=== PATIENT | female | born 1940 | race Caucasian/White ===

== ENCOUNTER 2023-09-27 06:37 | Observation (INO) ==
[2023-09-27] MEDS: SODIUM CHLORIDE 0.9% 500 ML IV SCH (07:07)
[2023-09-27] MEDS: SODIUM CHLORIDE 0.9% 500 ML IV ONE (07:18)
[2023-09-27 07:24] LABS: Basophils # (auto) 0.09 K/uL (0.00-0.20); Eosinophils # (auto) 0.48 K/uL (0.00-0.50); Eosinophils % (auto) 5.1 %; Hematocrit (blood only) 35.8 % (37.0-47.0); Hemoglobin 11.8 g/dl (12.0-16.0); Immature Granulocytes # (auto) 0.03 K/uL (0.01-0.20); Immature Granulocytes % (auto) 0.3 %; Lymphocytes % (auto) 20.1 %; Mean Corpuscular Hemoglobin 30.3 pg (25.0-34.0); Mean Corpuscular Volume 91.8 fL (80.0-100.0); Mean Platelet Volume 12.7 fL (9.4-12.4); Monocytes # (auto) 0.86 K/uL (0.11-0.59); Monocytes % (auto) 9.1 %; Neutrophils # (auto) 6.09 K/uL (1.40-6.50); Neutrophils % (auto) 64.4 %; Platelet Count 201 K/uL (130-400); RDW Coefficient of Variation 12.5 % (11.5-14.5); RDW Standard Deviation 41.5 fL (36.4-46.3); White Blood Count 9.45 K/ul (4.8-10.8)
[2023-09-27 07:39] LABS: Appearance Urine Clear (Clear); Bilirubin Urine Negative (Negative); Blood Urine Negative (Negative); Color Urine Yellow; Glucose Urine UA Negative (Negative); Ketones Urine Negative (Negative); Leukocyte Esterase Urine Negative (Negative); Nitrite Urine Negative (Negative); Protein Urine Negative (Negative); Specific Gravity Urine 1.025 (1.000-1.030); Urobilinogen Urine Negative (Negative); pH Urine 5.5 (4.5-7.5)
[2023-09-27 08:02] LABS: Partial Thromboplastin Time 26 Seconds (21-31); Prothrombin Time 10.8 Seconds (9.0-12.0)
--- NOTE | 2023-09-27 08:09 | Emergency Department Note ---
History of Present Illness General Chief complaint: Diarrhea Stated complaint: Diarrhea Time Seen by Provider: 09/27/23 06:51 Source: patient and family (Son at bedside) History of Present Illness Provider Complaint: + diarrhea Onset (ago): month(s) (2) Description of Diarrhea: no mucousy, no tarry, no blood-streaked or no bloody (bright red) Associated Abdominal Pain: No Context: no foreign travel, no recent antibiotic use or no trauma Associated symptoms: no fever/chills, no nausea/vomiting or no decreased urine output HPI Narrative: Patient has a history of dementia. History is provided by the son. Son states that he wants the patient placed into a skilled nursing. Home Medications Medication Instructions Recorded Confirmed Type celecoxib 100 mg capsule 100 mg PO DAILY 04/21/22 09/27/23 History losartan 100 mg tablet 100 mg PO DAILY 04/21/22 09/27/23 History omeprazole 20 mg capsule,delayed 20 mg PO DAILY 04/21/22 09/27/23 History release rivastigmine 9.5 mg/24 hour 1 patch transdermal DAILY 04/21/22 09/27/23 History transdermal patch biotin 1,000 mcg chewable tablet 1,000 mcg PO DAILY 09/27/23 09/27/23 History cholecalciferol (vitamin D3) 50 50 mcg PO DAILY 09/27/23 09/27/23 History mcg (2,000 unit) tablet (Vitamin D3) naproxen sodium 220 mg tablet 220 mg PO BID PRN Pain 09/27/23 09/27/23 History (Aleve) Allergies Allergy/AdvReac Type Severity Reaction Status Date / Time No Known Allergies Allergy Unverified 09/27/23 09:15 Past Med/Surg History Problem List (Updated 09/27/23 @ 14:31 by Pierre Driscoll MD) Dementia Essential hypertension Adult failure to thrive (Acute) Weight loss Diarrhea (Acute) Medical History No pertinent family history HTN (hypertension) Dementia Surgical History No pertinent past surgical history Social History Smoking Status: Unknown if ever smoked Preferred Language: Liberian Feels Safe at Home: Yes Physical Exam 2 Vital Signs: Vital Signs - 24 hr 09/27/23 07:04 09/27/23 07:04 09/27/23 08:29 Temperature 36.6 C Temperature Source Oral Pulse Rate 107 H 78 Pulse Rate [Apical ] Respiratory Rate 18 Respiratory Effort / Characteristics Respiratory Depth Blood Pressure 96/60 L Blood Pressure [Le ft Arm] Blood Pressure Rachell n 72 Blood Pressure Rachell n [Left Arm] Pulse Oximetry 96 96 Oxygen Delivery Me thod Room Air Room Air Sepsis Recent Feve r Within 48 Hours No Sepsis New/Unexpla ined Change in Men irma Status No Sepsis Action Take n by Nursing Physician Notified 09/27/23 08:47 09/27/23 11:23 09/27/23 12:35 Temperature Temperature Source Pulse Rate 76 Pulse Rate [Apical ] 84 77 Respiratory Rate 20 15 Respiratory Effort / Characteristics Non-Labored Sponta neous Respiratory Depth Normal Blood Pressure Blood Pressure [Le ft Arm] 123/69 111/70 Blood Pressure Rachell n Blood Pressure Rachell n [Left Arm] 87 83 Pulse Oximetry 97 97 Oxygen Delivery Me thod Room Air Room Air Sepsis Recent Feve r Within 48 Hours Sepsis New/Unexpla ined Change in Men irma Status Sepsis Action Take n by Nursing Physical Exam: Physical Exam HENT: Exam performed. - Head: Normocephalic and atraumatic. EYES: Conjunctivae and EOM are normal. Right eye exhibits no discharge. Left eye exhibits no discharge. No scleral icterus. NECK: Normal range of motion. Neck supple. No JVD present. CV: Normal rate, regular rhythm, normal heart sounds and intact distal pulses. There is no peripheral edema. Palpable radial pulses bue. PULM/CHEST: Effort normal and breath sounds normal. No respiratory distress. No stridor. no wheezes. no rales. ABD: The abdomen is soft. There is no tenderness. NEURO: Motor and sensation grossly intact. Course Course 06: The patient was evaluated in room C8. A complete history and physical exam was performed Cardiac monitoring: An order was placed for continuous cardiac monitoring. The monitor shows a rate of 100 with sinus rhythm interpreted by me 0900: Vital signs stable. Labs within normal limits. Son has been requesting repeatedly for the patient to be admitted to a skilled nursing. Discussed with case management who stated that the patient needs to be admitted to the hospital service and then be placed from the floor to a skilled nursing. [facility]. Administered Medications Sodium Chloride (Nss) 500 mls @ 125 mls/hr IV .Q4H SHANAE Stop: 10/27/23 06:59 Last Admin: 09/27/23 14:22 Dose: 125 mls/hr Documented By: Infusion: 09/27/23 13:26 Dose: Infused Documented By: Admin: 09/27/23 07:07 Dose: 125 mls/hr Documented By: HS Discontinued Medications Sodium Chloride (Nss) 500 mls @ 999 mls/hr IV .Q31M ONE Stop: 09/27/23 07:39 Last Infusion: 09/27/23 11:25 Dose: Infused Documented By: Admin: 09/27/23 07:18 Dose: 999 mls/hr Documented By: WILLIAM Medical Decision Making Laboratory Data Attestation: I reviewed the patient's lab results. 09/27/23 07:08 09/27/23 07:08 Lab Results 09/27/23 09/27/23 Range/Units 07:08 07:25 WBC 9.45 (4.8-10.8) K/ul RBC 3.90 L (4.20-5.40) M/uL Hgb 11.8 L (12.0-16.0) g/dl Hct 35.8 L (37.0-47.0) % MCV 91.8 (80.0-100.0) fL MCH 30.3 (25.0-34.0) pg MCHC 33.0 (32.0-36.0) g/dL RDW Std Deviation 41.5 (36.4-46.3) fL RDW Coeff of [place] 12.5 (11.5-14.5) % Plt Count 201 (130-400) K/uL MPV 12.7 H (9.4-12.4) fL Immature Gran % (Auto) 0.3 % Neut % (Auto) 64.4 % Lymph % (Auto) 20.1 % [place] % (Auto) 9.1 % Eos % (Auto) 5.1 % Baso % (Auto) 1.0 % Neut # (Auto) 6.09 (1.40-6.50) K/uL Lymph # (Auto) 1.90 (1.20-3.40) K/uL Sherman # (Auto) 0.86 H (0.11-0.59) K/uL Eos # (Auto) 0.48 (0.00-0.50) K/uL Baso # (Auto) 0.09 (0.00-0.20) K/uL Immature Gran # (Auto) 0.03 (0.01-0.20) K/uL PT 10.8 (9.0-12.0) Seconds INR 1.0 (0.9-1.1) APTT 26 (21-31) Seconds PTT Ratio 1.0 Sodium 135 L (136-145) mmol/L Potassium 4.9 (3.5-5.1) mmol/L Chloride 103 (98-107) mmol/L Carbon Dioxide 24 (21-32) mmol/L Anion Gap 8 (3-11) BUN 30 H (6-23) mg/dl Creatinine 1.37 H (0.6-1.2) mg/dl Est Cr Clr Drug Dosing 28.8 ml/min Est GFR ( Amer) 41.5 ml/min Est GFR (Non-Af Amer) 35.8 ml/min BUN/Creatinine Ratio 21.9 H (10-20) Glucose 93 (70-99(Fasting)) mg/dl Calcium 9.5 (8.6-10.3) mg/dl Magnesium 1.9 (1.7-2.4) mg/dl Total Bilirubin 0.3 (0.2-1.0) mg/dl Direct Bilirubin 0.1 (0-0.2) mg/dl AST 14 (13-39) U/L ALT 10 (7-52) U/L Alkaline Phosphatase 64 (34-104) U/L Total Protein 7.3 (6.0-8.3) gm/dl Albumin 4.3 (3.4-5.0) gm/dl Lipase 57 (11-82) U/L Urine Color Yellow Urine Appearance Clear (Clear) Urine pH 5.5 (4.5-7.5) Ur Specific [place] 1.025 (1.000-1.030) Urine Protein Negative (Negative) Urine Glucose (UA) Negative (Negative) Urine Ketones Negative (Negative) Urine Blood Negative (Negative) Urine Nitrite Negative (Negative) Urine Bilirubin Negative (Negative) Urine Urobilinogen Negative (Negative) Ur Leukocyte Esterase Negative (Negative) [facility] Narrative 0651: The patient was evaluated in room C8. A complete history and physical exam was performed Cardiac monitoring: An order was placed for continuous cardiac monitoring. The monitor shows a rate of 100 with sinus rhythm interpreted by me 0900: Vital signs stable. Labs within normal limits. Son has been requesting repeatedly for the patient to be admitted to a skilled nursing. Discussed with case management who stated that the patient needs to be admitted to the hospital service and then be placed from the floor to a skilled nursing. Patient be admitted to the [facility] hospitalist team. Impression & Plan Adult failure to thrive, Diarrhea Discharge Plan Visit Data Chief Complaint: Diarrhea Stated Complaint: Diarrhea ED Provider: Pierre Driscoll Discharge Problem: Adult failure to thrive, Diarrhea Patient Disposition: Being Evaluated by Hospitalist Forms Stand Alone Forms: [facility] Prescriptions Prescriptions: No Action omeprazole 20 mg capsule,delayed release(DR/EC) 20 mg PO DAILY losartan 100 mg tablet 100 mg PO DAILY rivastigmine 9.5 mg/24 hour patch 24 hour 1 patch transdermal DAILY Rx Instructions: ALTERNATE PATCH SITES DAILY celecoxib 100 mg capsule 100 mg PO DAILY naproxen sodium [Aleve] 220 mg Tablet 220 mg PO BID PRN (Reason: Pain) cholecalciferol (vitamin D3) [Vitamin D3] 50 mcg (2,000 unit) Tablet 50 mcg PO DAILY biotin 1,000 mcg Tablet,Chewable 1,000 mcg PO DAILY Referrals Referrals: Yin Schaefer DO [Primary Care Provider] -
[2023-09-27 08:21] LABS: Albumin Level 4.3 gm/dl (3.4-5.0); BUN Creatinine Ratio 21.9 (10-20); Bilirubin,Total 0.3 mg/dl (0.2-1.0); Calcium 9.5 mg/dl (8.6-10.3); Creatinine Clr Calc Pharmacy 28.8 ml/min; Est GFR (African American) 41.5 ml/min; Est GFR (Non-African American) 35.8 ml/min; Magnesium 1.9 mg/dl (1.7-2.4); Total Protein 7.3 gm/dl (6.0-8.3)
[2023-09-27 08:40] LABS: Bilirubin Direct 0.1 mg/dl (0-0.2); Potassium 4.9 mmol/L (3.5-5.1)
--- NOTE | 2023-09-27 11:49 | History & Physical Report ---
Date of Service September 27, 2023 Assessment & Plan (1) Diarrhea: Plan: Protracted watery diarrhea for the past 2 months. She denies any melena or hematochezia. No associated nausea or vomiting. She refuses any testing to evaluate her symptoms except for stool BioFire. For this reason, GI consultation has not been requested (2) Weight loss: Plan: Findings are highly suspicious for occult malignancy. However she has refused any further testing (3) Adult failure to thrive: Plan: OT and PT assessments requested. Her son has requested long-term placement (4) Essential hypertension: Plan: Continue losartan therapy (5) Dementia: Plan: Supportive care. She currently uses rivastigmine patches daily Plan Eventual long-term care placement History of Present Illness Chief Complaint: protracted watery diarrhea, weight loss, FTT Primary Care Provider: Yin Schaefer DO 82-year-old white female with protracted watery diarrhea for the past 2 months accompanied by weight loss and failure to thrive. She denies any associated nausea or vomiting. She denies melena or hematochezia. She denies any recent colonoscopy. She also refuses to undergo any workup for her current symptoms which entail invasive procedures like colonoscopy. For this reason, gastroenterology will not be consulted. Stool BioFire is pending. IV fluids ordered. OT and PT assessments requested. The patient's son is requesting long-term placement. Allergies Allergy/AdvReac Type Severity Reaction Status Date / Time No Known Allergies Allergy Unverified 09/27/23 09:15 Home Medications Medication Instructions Recorded Confirmed Type celecoxib 100 mg capsule 100 mg PO DAILY 04/21/22 09/27/23 History losartan 100 mg tablet 100 mg PO DAILY 04/21/22 09/27/23 History omeprazole 20 mg capsule,delayed 20 mg PO DAILY 04/21/22 09/27/23 History release rivastigmine 9.5 mg/24 hour 1 patch transdermal DAILY 04/21/22 09/27/23 History transdermal patch biotin 1,000 mcg chewable tablet 1,000 mcg PO DAILY 09/27/23 09/27/23 History cholecalciferol (vitamin D3) 50 50 mcg PO DAILY 09/27/23 09/27/23 History mcg (2,000 unit) tablet (Vitamin D3) naproxen sodium 220 mg tablet 220 mg PO BID PRN Pain 09/27/23 09/27/23 History (Aleve) Past Med/Surg History Problem List (Updated 09/27/23 @ 11:48 by Justin Carrizales MD) Dementia Essential hypertension Adult failure to thrive Weight loss Diarrhea Medical History No pertinent family history HTN (hypertension) Dementia Surgical History No pertinent past surgical history Social History Smoking Status: Unknown if ever smoked Preferred Language: Tanzanian Feels Safe at Home: Yes Review of Systems 2 Review of Systems: Constitutional-no fever or chills. Weight loss. Weakness ENT-no blurred vision, no double vision, no epistaxis, no sore throat Respiratory-no cough, no wheezing, no shortness of breath Cardiac-no palpitations, no chest pain, no syncope GI-no nausea, vomiting, melena, hematochezia. Protracted watery diarrhea for the past 2 months -no urinary retention, no urinary incontinence, no dysuria, no hematuria Musculoskeletal-no joint pain, no muscle tenderness Skin-no bruising, no rashes, no pruritus Neuro-generalized weakness Psych-no depression, no anxiety Physical Exam 2 Physical Exam: General-alert and oriented x3, no fever, no chills. Elderly female. Cachectic appearing HEENT-head atraumatic and normocephalic, pupils equal and reactive to light, extraocular muscles intact Neck-no lymphadenopathy or thyromegaly, trachea midline Chest-clear to auscultation. No rales, wheezing or rhonchi Cardiac-regular rate and rhythm, normal S1 and S2 Abdomen-normal bowel sounds, no hepatosplenomegaly Extremities-no cyanosis, clubbing, or edema Neuro-cranial nerves II through XII intact, motor and sensory function within normal limits, strength symmetrical with generalized weakness, no focal deficits Psych-normal affect, normal mood Results & Data Results & Data Vital Signs (Past 12 Hours) Vital Signs Temp Pulse Pulse Resp BP BP Pulse Ox 09/27/23 11:23 77 15 111/70 97 09/27/23 08:47 84 20 123/69 97 09/27/23 08:29 78 09/27/23 07:04 96 09/27/23 07:04 36.6 C 107 H 18 96/60 L 96 O2 Del Method 09/27/23 11:23 Room Air 09/27/23 08:47 Room Air 09/27/23 08:29 09/27/23 07:04 Room Air 09/27/23 07:04 Room Air Laboratory Results 09/27/23 07:08 09/27/23 07:08 Code Status & VTE Plan Code Status DNR/DNI PG Care Time/CCT Total # of Minutes Spent Total Time Spent with Patient: Total time spent is greater than 50% in coordination of care (as documented) at patient's floor/unit and/or counseling patient: Coding Level of Care Code 04267 INT INP/OBS CARE 3/75MIN Diagnoses Diarrhea R19.7 Weight loss R63.4 Adult failure to thrive R62.7 Essential hypertension I10 Dementia F03.90
[2023-09-27] MEDS ORDERED: ACETAMINOPHEN 325 MG TAB PO PRN (15:57)
[2023-09-27] MEDS ORDERED: ONDANSETRON INJ 2 MG/ML 2 ML VIAL IV PRN (15:57)
[2023-09-27 17:12] LABS: Basophils # (auto) 0.09 K/uL (0.00-0.20); Basophils % (auto) 1.4 %; Eosinophils # (auto) 0.34 K/uL (0.00-0.50); Eosinophils % (auto) 5.3 %; Hematocrit (blood only) 33.7 % (37.0-47.0); Hemoglobin 11.1 g/dl (12.0-16.0); Immature Granulocytes # (auto) 0.02 K/uL (0.01-0.20); Immature Granulocytes % (auto) 0.3 %; Lymphocytes # (auto) 1.58 K/uL (1.20-3.40); Lymphocytes % (auto) 24.4 %; Mean Corpuscular Hemoglobin 30.2 pg (25.0-34.0); Mean Corpuscular Hgb Conc 32.9 g/dL (32.0-36.0); Mean Corpuscular Volume 91.6 fL (80.0-100.0); Mean Platelet Volume 12.9 fL (9.4-12.4); Monocytes # (auto) 0.57 K/uL (0.11-0.59); Monocytes % (auto) 8.8 %; Neutrophils # (auto) 3.87 K/uL (1.40-6.50); Neutrophils % (auto) 59.8 %; Platelet Count 196 K/uL (130-400); RDW Coefficient of Variation 12.5 % (11.5-14.5); RDW Standard Deviation 41.6 fL (36.4-46.3); Red Blood Count 3.68 M/uL (4.20-5.40); White Blood Count 6.47 K/ul (4.8-10.8)
[2023-09-27 17:28] LABS: Calcium 8.9 mg/dl (8.6-10.3); Creatinine Clr Calc Pharmacy 30.4 ml/min; Est GFR (African American) 44.2 ml/min; Est GFR (Non-African American) 38.2 ml/min; Potassium 4.5 mmol/L (3.5-5.1)
[2023-09-27] MEDS: SODIUM CHLORIDE 0.9% 1,000 ML IV SCH (17:28)
[2023-09-27] MEDS: PNEUMOCOCCAL VACCINE (PCV20) 20-VAL CONJ-DIP CRM/PF 0.5 ML SYR IM ONE (17:41)
[2023-09-27 19:32] LABS: Appearance Urine Clear (Clear); Bacteria Urine Automated 4+ (None Seen); Bilirubin Urine Negative (Negative); Blood Urine Negative (Negative); Cast Urine Automated 0-2 /lpf (0-2); Color Urine Yellow; Epithelial Cell Urine Auto 0-2 /hpf (0-2); Glucose Urine UA Negative (Negative); Ketones Urine Negative (Negative); Leukocyte Esterase Urine Trace (Negative); Nitrite Urine Negative (Negative); Protein Urine Negative (Negative); RBC Urine Automated 0-2 /hpf (0-2); Specific Gravity Urine 1.011 (1.000-1.030); Urobilinogen Urine Negative (Negative); pH Urine 6.5 (4.5-7.5)
[2023-09-27] MEDS: PSYLLIUM or GUAR GUM FIBER 4GM PACKET PO SCH (21:25)
[2023-09-27] MEDS: HEPARIN SOD 5,000 UNIT/0.5 ML VIAL SQ SCH (21:25)
[2023-09-28] MEDS ORDERED: NON-FORMULARY MEDICATION (Biotin 1,000 mcg Tablet,Chewable) PO SCH (09:00)
[2023-09-28 09:25] LABS: Basophils # (auto) 0.07 K/uL (0.00-0.20); Basophils % (auto) 1.2 %; Eosinophils # (auto) 0.36 K/uL (0.00-0.50); Hematocrit (blood only) 33.9 % (37.0-47.0); Immature Granulocytes # (auto) 0.01 K/uL (0.01-0.20); Immature Granulocytes % (auto) 0.2 %; Lymphocytes # (auto) 0.96 K/uL (1.20-3.40); Lymphocytes % (auto) 15.9 %; Mean Corpuscular Hgb Conc 32.4 g/dL (32.0-36.0); Mean Corpuscular Volume 92.4 fL (80.0-100.0); Monocytes # (auto) 0.54 K/uL (0.11-0.59); Monocytes % (auto) 8.9 %; Neutrophils % (auto) 67.8 %; Platelet Count 249 K/uL (130-400); RDW Coefficient of Variation 12.5 % (11.5-14.5); RDW Standard Deviation 42.1 fL (36.4-46.3); Red Blood Count 3.67 M/uL (4.20-5.40); White Blood Count 6.04 K/ul (4.8-10.8)
--- NOTE | 2023-09-28 09:32 | Hospitalist Progress Note ---
Date of Service September 28, 2023 Assessment & Plan (1) Diarrhea: Plan: For family history, protracted watery diarrhea for the past 2 months. She denies any melena or hematochezia. No associated nausea or vomiting. She refuses any testing to evaluate her symptoms except for stool BioFire. For this reason, GI consultation has not been requested, no abdominal imaging she has gram negative uti poa started on p.o. Cipro due to lack of IV access (2) Weight loss: Plan: Findings are highly suspicious for occult malignancy. However she has refused any further testing (3) Adult failure to thrive: Plan: OT and PT assessments requested. Her son has requested long-term placement (4) Essential hypertension: Plan: Continue losartan therapy (5) Dementia: Plan: Supportive care. She currently uses rivastigmine patches daily Plan Eventual long-term care placement Admission and Anticipated Discharge Date Admission Date: September 27, 2023 Subjective Patient is pleasantly confused she offers no complaints but is not oriented to anything but self. She is folding towels but pleasant and comfortable Physical Exam Physical Exam: Alert and conversive cannot provide much detail card exam is regular lungs are clear Results & Data Results & Data Vital Signs (Past 12 Hours) Vital Signs Temp Pulse Resp BP BP Pulse Ox O2 Del Method 09/28/23 06:58 97.2 F L 67 18 116/70 98 Room Air 09/27/23 23:26 98.1 F 59 L 16 138/54 L 97 Room Air Laboratory Results Reviewed CBC reviewed chemistry PG Care Time/CCT Total # of Minutes Spent Total Time Spent with Patient: Total time spent is greater than 50% in coordination of care (as documented) at patient's floor/unit and/or counseling patient: Coding Level of Care Code 52171 SUB INP/OBS CARE 2/35MIN Diagnoses Diarrhea R19.7 Weight loss R63.4 Adult failure to thrive R62.7 Essential hypertension I10 Dementia F03.90
[2023-09-28] MEDS: CELECOXIB 100 MG CAP PO SCH (09:36)
[2023-09-28] MEDS: CHOLECALCIFEROL 25 MCG (1000 UNITS) TAB PO SCH (09:36)
[2023-09-28] MEDS: LOSARTAN POTASSIUM 50 MG TAB PO SCH (09:36)
[2023-09-28 09:53] LABS: BUN Creatinine Ratio 18.6 (10-20); Creatinine Clr Calc Pharmacy 30.6 ml/min; Est GFR (African American) 44.7 ml/min; Est GFR (Non-African American) 38.5 ml/min; Potassium 4.5 mmol/L (3.5-5.1)
[2023-09-28] MEDS: cefTRIAXone SODIUM 2,000 MG/50 ML BAG IV SCH (11:18)
[2023-09-28] MEDS: CIPROFLOXACIN 250 MG TAB PO ONE (12:01)
[2023-09-28] MEDS: MELATONIN 3 MG TAB PO PRN (19:53)
[2023-09-28] MEDS: CIPROFLOXACIN 250 MG TAB PO SCH (22:12)
[2023-09-29] MEDS: RIVASTIGMINE TD SCH (07:51)
--- NOTE | 2023-09-29 08:16 | Hospitalist Progress Note ---
Date of Service September 29, 2023 Assessment & Plan (1) Diarrhea: Plan: For family history, protracted watery diarrhea for the past 2 months. She denies any melena or hematochezia. No associated nausea or vomiting. She refuses any testing to evaluate her symptoms except for stool BioFire. For this reason, GI consultation has not been requested, no abdominal imaging diarrhea has not returned she has Klebsiella uti poa started on p.o. Cipro due to lack of IV access (2) Weight loss: Plan: Findings are highly suspicious for occult malignancy. However she has refused any further testing (3) Adult failure to thrive: Plan: OT and PT assessments requested. Her son has requested long-term placement (4) Essential hypertension: Plan: Continue losartan therapy (5) Dementia: Plan: Supportive care. She currently uses rivastigmine patches daily Plan Eventual long-term care placement Admission and Anticipated Discharge Date Admission Date: September 27, 2023 Subjective Patient is pleasantly confused she offers no complaints but is not oriented to anything but self. She is sitting comfortably at the bedside Physical Exam Physical Exam: Alert and conversive cannot provide much detail card exam is regular lungs are clear Results & Data Results & Data Vital Signs (Past 12 Hours) Vital Signs Temp Pulse Resp BP Pulse Ox O2 Del Method 09/29/23 06:56 98.2 F 61 16 115/70 96 Room Air 09/28/23 20:59 Room Air PG Care Time/CCT Total # of Minutes Spent Total Time Spent with Patient: Total time spent is greater than 50% in coordination of care (as documented) at patient's floor/unit and/or counseling patient: Coding Level of Care Code 76798 SUB INP/OBS CARE 2/35MIN Diagnoses Diarrhea R19.7 Weight loss R63.4 Adult failure to thrive R62.7 Essential hypertension I10 Dementia F03.90
[2023-09-29] MEDS ORDERED: NAPHAZOLIN/PHENIRAMIN OPH SOLN 15 ML BTL OP PRN (10:37)
[2023-09-30 06:28] LABS: Hematocrit (blood only) 33.5 % (37.0-47.0); Hemoglobin 10.8 g/dl (12.0-16.0); Mean Corpuscular Hemoglobin 29.8 pg (25.0-34.0); Mean Corpuscular Hgb Conc 32.2 g/dL (32.0-36.0); Mean Corpuscular Volume 92.3 fL (80.0-100.0); Mean Platelet Volume 12.3 fL (9.4-12.4); Platelet Count 261 K/uL (130-400); RDW Coefficient of Variation 12.5 % (11.5-14.5); RDW Standard Deviation 42.5 fL (36.4-46.3); Red Blood Count 3.63 M/uL (4.20-5.40); White Blood Count 5.87 K/ul (4.8-10.8)
[2023-09-30 06:39] LABS: BUN Creatinine Ratio 17.4 (10-20); Calcium 9.1 mg/dl (8.6-10.3); Creatinine Clr Calc Pharmacy 29.9 ml/min; Est GFR (African American) 43.4 ml/min; Est GFR (Non-African American) 37.5 ml/min; Potassium 4.1 mmol/L (3.5-5.1)
--- NOTE | 2023-09-30 15:56 | Discharge Summary ---
Discharge Summary Date of Service September 30, 2023 Principal Dx & Hospital Course #1 = Principal Diagnosis (1) Diarrhea: For family history, protracted watery diarrhea for the past 2 months. She denies any melena or hematochezia. No associated nausea or vomiting. She refuses any testing to evaluate her symptoms except for stool BioFire. For this reason, GI consultation has not been requested, no abdominal imaging diarrhea has not returned now using fiber she has Klebsiella uti poa started on p.o. Cipro complete one week (2) Weight loss: Findings are highly suspicious for occult malignancy. However she has refused any further testing (3) Adult failure to thrive: OT and PT assessments recommend rehab Her son may be interested in long-term placement (4) Essential hypertension: Continue losartan therapy (5) Dementia: Supportive care. She currently uses rivastigmine patches daily Notes For Next Care Provider complete antibiotics for uti Admission HPI Per Admitting Provider 82-year-old white female with protracted watery diarrhea for the past 2 months accompanied by weight loss and failure to thrive. She denies any associated nausea or vomiting. She denies melena or hematochezia. She denies any recent c olonoscopy. She also refuses to undergo any workup for her current symptoms which entail invasive procedures like colonoscopy. For this reason, gastroenterology will not be consulted. Stool BioFire is pending. IV fluids ordered. OT and PT assessments requested. The patient's son is requesting long-term placement. Discharge Exam awake and pleasant, takes redirection well Updated Medication List Medication Instructions Recorded Confirmed Type celecoxib 100 mg capsule 100 mg PO DAILY 04/21/22 09/27/23 History losartan 100 mg tablet 100 mg PO DAILY 04/21/22 09/27/23 History omeprazole 20 mg capsule,delayed 20 mg PO DAILY 04/21/22 09/27/23 History release rivastigmine 9.5 mg/24 hour 1 patch transdermal DAILY 04/21/22 09/27/23 History transdermal patch biotin 1,000 mcg chewable tablet 1,000 mcg PO DAILY 09/27/23 09/27/23 History cholecalciferol (vitamin D3) 50 50 mcg PO DAILY 09/27/23 09/27/23 History mcg (2,000 unit) tablet (Vitamin D3) naproxen sodium 220 mg tablet 220 mg PO BID PRN Pain 09/27/23 09/27/23 History (Aleve) PSYLLIUM or GUAR GUM FIBER SUP 4 g PO BID #60 doses 09/30/23 Rx [METAMUCIL or NUTRISOURCE FIBER SUPPLEMENT] ciprofloxacin HCl 250 mg tablet 250 mg PO Q12H #10 tabs 09/30/23 Rx Hospital Stay Data Consultations 09/27/23 08:57 ED Decision to Admit Stat Pending Results Patient Have Any Pending Studies at Discharge: No Discharge Instructions Given to Patient (Per Discharging Provider) This patient has not had any many medical issues while in hospital her complaints of diarrhea have not been significant since she has been taking Metamucil. We are unable to do any testing because it has resolved. She is very demented and is only oriented to person, however she is usually pleasant and re directable. She takes rivastigmine patches daily Found to have a pansensitive Klebsiella UTI present on admission treated with ciprofloxacin to complete a 1 week course Total Time Total Time Spent Total Time Spent (In Minutes): It required less than 30 minutes to prepare this patient for discharge. Coding Level of Care Code 51595 IN/OBS DISCH 30 MIN/LESS Diagnoses Diarrhea R19.7 Weight loss R63.4 Adult failure to thrive R62.7 Essential hypertension I10 Dementia F03.90
== END 2023-09-30 12:39 | DRG 392 ==
LOC: ED 06:37 → INTOOBSV 11:37 → 3N 11:37 → SUATTDRO 11:37 → 3N 15:40